=== PATIENT | male | born 1970 | race Caucasian/White ===

== ENCOUNTER 2016-10-13 22:47 | Emergency (ER) | payer MEDICARE, MEDICAID ==
[~2016-10-13] VITALS: Ht 167.6 cm; Wt 74.8 kg
[~2016-10-13 22:47] MED LIST: ASPIRIN81 M1 PO; LISINOPRIL2.5 MG PO; MULTIPLE VITAMI1 TAB PO; MULTIVITAMIN1 CTB PO; NIACIN500 M3 PO; PRILOSEC20 MG PO; TYLENOL325 M1; VITAMIN B121000 MC2 SL
[2016-10-14] MEDS ORDERED: CEFADROXIL500 M1 PO (00:13)
[2016-10-14] MEDS ORDERED: PREDNISONE20 M1 PO (00:22)
[2016-10-14] MEDS ORDERED: BENADRYL25 M2 PO (00:22)
== END 2016-10-14 01:10 | disposition home or self-care (01) ==
LOC: ED 22:47
DX: T78.40XA Allergy, unspecified, initial encounter (principal); Z88.6 Allergy status to analgesic agent; Z79.82 Long term (current) use of aspirin; Z79.899 Other long term (current) drug therapy; X58.XXXA Exposure to other specified factors, initial encounter

== ENCOUNTER 2017-05-09 06:51 | Emergency (ER) | payer MEDICARE, MEDICAID ==
[~2017-05-09] VITALS: Ht 165.1 cm; Wt 77.1 kg
[~2017-05-09 06:51] MED LIST changes: +BENADRYL25 M2 PO; +CEFADROXIL500 M1 PO; +PREDNISONE20 M1 PO
[2017-05-09] MEDS ORDERED: CLARITIN10 MG PO (07:06)
[2017-05-09] MEDS ORDERED: PEPCID20 MG PO (07:06)
[2017-05-09] MEDS ORDERED: MEDROL DOSEPAK4 MG PO (07:06)
[2017-05-09 07:25] LABS: BASO % 0.1 % (0.0-1.0); EOS % 0.1 % (1.0-4.0); HEMATOCRIT 43.6 % (42.0-52.0); HEMOGLOBIN 14.2 g/dl (14.0-18.0); LYMPH # 1.3 10*3/uL (1.3-4.4); LYMPH % 9.5 % (27.0-41.0); MEAN CELL VOLUME 79.3 fl (80.0-94.0); MEAN CORPUSCULAR HGB 25.8 pg (27.0-31.0); MEAN CORPUSCULAR HGB CONC 32.6 g/dl (33.0-37.0); MONO # 0.5 10*3/uL (0.1-1.0); MONO % 3.7 % (3.0-9.0); NEUT # 12.2 10*3/uL (2.3-7.9); NEUT % 86.2 % (47.0-73.0); PLATELET COUNT AUTOMATED 192 10*3/uL (130-400); RED CELL DISTRI WIDTH 16.4 % (0-14.5); WHITE BLOOD COUNT 14.2 10*3/uL (4.8-10.8)
[2017-05-09 07:37] LABS: BUN 19 mg/dl (7-24); CHLORIDE 105 mmol/L (98-107); CREATININE 1.24 mg/dL (0.70-1.30); POTASSIUM 3.6 mmol/L (3.5-5.1); SODIUM 139 mmol/L (136-145)
== END 2017-05-09 08:14 | disposition home or self-care (01) ==
LOC: ED 06:51
PROVIDERS: Emergency Medicine
DX: L50.9 Urticaria, unspecified (principal); Z88.6 Allergy status to analgesic agent; Z79.82 Long term (current) use of aspirin; Z79.899 Other long term (current) drug therapy